=== PATIENT | female | born 1970 | race American Indian/Alaskan Native ===

== ENCOUNTER 2016-10-28 07:00 | Emergency (ER) | payer BC ==
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
[~2016-10-28 07:00] MED LIST: NO MEDICATIONS; NORCO 5/325 TAB1 TAB PO
== END 2016-10-28 09:32 | disposition home or self-care (01) ==
LOC: CED 07:00 → CFTX 08:10 → CED 09:32
DX: S61.412A Laceration without foreign body of left hand, initial encounter (principal); F17.210 Nicotine dependence, cigarettes, uncomplicated; J45.909 Unspecified asthma, uncomplicated; Z88.8 Allergy status to other drugs, medicaments and biological substances; X58.XXXA Exposure to other specified factors, initial encounter; Y92.009 Unspecified place in unspecified non-institutional (private) residence as the place of occurrence of the external cause
CPT/HCPCS: 12001; 73130; 99283; J1885; J2405